=== PATIENT | female | born 1995 | race Caucasian/White ===

== ENCOUNTER → 2018-04-12 | Outpatient (CLI) | payer OTHER ==
[~2018-04-12] MED LIST: AMIT50 PO; BUPRENORPHIN-N1 EACH PO; CYCL10 PO; FIORICET 50-301 EACH PO; IBUP800 PO; Inderal40 MG; Naprosyn500 MG PO; Norco 5-325 Ta1 EACH PO
== END | disposition home or self-care (01) ==
LOC: LAB SHORT 13:30 → LAB 13:30
DX: Z34.00 Encounter for supervision of normal first pregnancy, unspecified trimester (principal)
CPT/HCPCS: 87081; 87653

== ENCOUNTER 2018-05-10 04:09 | Inpatient (IN) | payer OTHER ==
[~2018-05-10] VITALS: Ht 177.8 cm; Wt 77.0 kg
[~2018-05-10 04:09] MED LIST changes: -BUPRENORPHIN-N1 EACH PO; -IBUP800 PO
[2018-05-10 04:40] LABS: BASOPHILS ABSOLUTE AUTO 0.03 K/mm3 (0.00-0.23); BASOPHILS PERCENT AUTO 0 % (0-2); EOSINOPHILS ABSOLUTE AUTO 0.11 K/mm3 (0.00-0.68); EOSINOPHILS PERCENT AUTO 1 % (0-6); Hematocrit 33.5 % (33.0-51.0); Hemoglobin 11.4 g/dL (11.5-16.0); IMMATURE GRAN ABSOLUTE AUTO 0.05 K/mm3 (0.00-0.10); IMMATURE GRAN PERCENT AUTO 1 % (0-1); LYMPHOCYTES ABSOLUTE AUTO 2.86 K/mm3 (0.84-5.20); LYMPHOCYTES PERCENT AUTO 29 % (21-46); MONOCYTES ABSOLUTE AUTO 0.76 K/mm3 (0.16-1.47); MONOCYTES PERCENT AUTO 8 % (4-13); Mean Corpuscular HGB 31.1 pg (26.0-34.0); Mean Corpuscular Volume 91 fL (80-100); Mean Platelet Volume 11.6 fL (9.1-12.4); NEUTROPHILS ABSOLUTE AUTO 6.07 K/mm3 (1.96-9.15); NEUTROPHILS PERCENT AUTO 62 % (41-73); Platelet Count 200 K/mm3 (150-400); RDW Coefficient Variation 12.5 % (11.7-14.2); RDW Standard Deviation 41.2 fL (35.1-46.3); Red Blood Cell Count 3.67 M/mm3 (3.80-5.20); White Blood Cell Count 9.88 K/mm3 (4.00-11.30)
[2018-05-10] MEDS ORDERED: BUPRENORPHIN-N1 EACH PO (04:43)
--- NOTE | 2018-05-11 08:00 | NUR ---
PT REFUSED AM LABS AT 0500 AND AGAIN AT 0800 PT REFUSED AM LABS AT 0500 AND STATED THE AUTOMATIC RIVETING MACHINE OPERATOR COULD BACK AT 0800 TO DRAW THEM. AUTOMATIC RIVETING MACHINE OPERATOR CAME BACK AT 0800 AND PT REFUSED LAB DRAW ONCE AGAIN.
[2018-05-11] MEDS ORDERED: IBUP800 PO (12:05)
--- NOTE | 2018-05-11 16:00 | NUR ---
DISCHARGED TO BOARDER STATUS
== END 2018-05-11 17:07 | disposition home or self-care (01) | DRG 806 ==
LOC: OBS 04:09 → BC 04:09 → OBS 04:15 → BC 04:18
PROVIDERS: ADMIT Obstetrics & Gynecology
PROC: 10E0XZZ Delivery of Products of Conception, External Approach (ICD-10-PCS; principal; 2018-05-10)
PROC: 0KQM0ZZ Repair Perineum Muscle, Open Approach (ICD-10-PCS; 2018-05-10)
PROC: 3E033VJ Introduction of Other Hormone into Peripheral Vein, Percutaneous Approach (ICD-10-PCS; 2018-05-10)
PROC: 10907ZC Drainage of Amniotic Fluid, Therapeutic from Products of Conception, Via Natural or Artificial Opening (ICD-10-PCS; 2018-05-10)
PROC: 3E0R3BZ Introduction of Anesthetic Agent into Spinal Canal, Percutaneous Approach (ICD-10-PCS; 2018-05-10)
DX: O48.0 Post-term pregnancy (principal); O99.324 Drug use complicating childbirth; Z37.0 Single live birth; F11.20 Opioid dependence, uncomplicated; Z3A.40 40 weeks gestation of pregnancy; O99.334 Smoking (tobacco) complicating childbirth; F17.210 Nicotine dependence, cigarettes, uncomplicated; O70.1 Second degree perineal laceration during delivery
CPT/HCPCS: 36415; 51702; 85025; 85460; 96372; J1885; J2210; J2405; J2590; J2790; J3010; J7120

== ENCOUNTER → 2019-05-27 | Outpatient (CLI) | payer OTHER ==
[~2019-05-27] MED LIST changes: +BUPRENORPHIN-N1 EACH PO; +IBUP800 PO
[2019-05-29 10:03] LABS: T. vaginalis (DNA Probe) Negative (NEGATIVE)
[2019-05-29 10:04] LABS: Candida species (DNA Probe) Negative (NEGATIVE); G. vaginalis (DNA Probe) Positive (NEGATIVE)
[2019-05-29 15:07] LABS: HPV 16 Negative (Negative); HPV 18 Negative (Negative); HPV OTHER HR TYPES Negative (Negative)
== END | disposition home or self-care (01) ==
LOC: LAB 12:34 → LAB SHORT 12:34
PROVIDERS: Family Medicine
DX: Z12.4 Encounter for screening for malignant neoplasm of cervix (principal); N76.0 Acute vaginitis
CPT/HCPCS: 87480; 87510; 87624; 87660; G0123

== ENCOUNTER → 2020-04-28 | Outpatient (CLI) | payer OTHER ==
[~2020-04-28] MED LIST changes: +BUPRENORPHN-NA1 EAC2 SL; +HYDR1TAB94 PO; +ONDA4ODT MM
[2020-05-01 03:09] LABS: CHLAMYDIA TRACHOMATIS, NAA Negative (Negative)
== END | disposition home or self-care (01) ==
LOC: LAB SHORT 11:59 → LAB EV 11:59
PROVIDERS: Family Medicine
DX: Z32.01 Encounter for pregnancy test, result positive (principal); N76.0 Acute vaginitis
CPT/HCPCS: 84702; 87070; 87086; 87205; 87491; 87591

== ENCOUNTER 2020-05-25 16:23 | Emergency (ER) | payer OTHER ==
[~2020-05-25] VITALS: Ht 177.8 cm; Wt 67.1 kg
[~2020-05-25 16:23] MED LIST changes: -BUPRENORPHN-NA1 EAC2 SL
[2020-05-25] MEDS ORDERED: BUPRENORPHN-NA1 EAC2 SL (16:57)
[2020-05-25 17:07] LABS: BASOPHILS ABSOLUTE AUTO 0.03 K/mm3 (0.00-0.23); BASOPHILS PERCENT AUTO 1 % (0-2); EOSINOPHILS ABSOLUTE AUTO 0.16 K/mm3 (0.00-0.68); EOSINOPHILS PERCENT AUTO 3 % (0-6); Hematocrit 34.3 % (33.0-51.0); Hemoglobin 11.3 g/dL (11.5-16.0); IMMATURE GRAN ABSOLUTE AUTO 0.02 K/mm3 (0.00-0.10); IMMATURE GRAN PERCENT AUTO 0 % (0-1); LYMPHOCYTES PERCENT AUTO 39 % (21-46); MONOCYTES ABSOLUTE AUTO 0.65 K/mm3 (0.16-1.47); MONOCYTES PERCENT AUTO 10 % (4-13); Mean Corpuscular HGB 27.6 pg (26.0-34.0); Mean Corpuscular HGB Conc 32.9 g/dL (31.5-36.5); Mean Corpuscular Volume 84 fL (80-100); Mean Platelet Volume 10.5 fL (9.1-12.4); NEUTROPHILS ABSOLUTE AUTO 3.08 K/mm3 (1.96-9.15); NEUTROPHILS PERCENT AUTO 48 % (41-73); NRBC ABSOLUTE 0.04 K/mm3 (0.00-0.02); NRBC Auto 0.6 /100 WBC (0.0-0.2); Platelet Count 367 K/mm3 (150-400); RDW Coefficient Variation 12.6 % (11.7-14.2); RDW Standard Deviation 38.5 fL (35.1-46.3); White Blood Cell Count 6.44 K/mm3 (4.00-11.30)
[2020-05-25 17:24] LABS: Alanine Aminotransfer (ALT/SGP 131 U/L (12-78); Albumin, Blood 3.6 g/dL (3.4-5.0); Albumin/Globulin Ratio 0.9 (0.8-1.8); Alk Phos 89 U/L (50-136); Anion Gap 7 mmol/L (6-16); Aspartate Aminotrans (AST/SGOT 132 U/L (12-37); Beta HCG, Quantitative, Serum 35 mIU/mL (0-3); Bilirubin, Total 0.6 mg/dL (0.1-1.0); Blood Urea Nitrogen 7 mg/dL (8-24); Bun/Creatinine Ratio 12.1 (12.0-20.0); CO2, Blood 25 mmol/L (21-32); Calcium, Blood 8.8 mg/dL (8.5-10.1); Chloride, Blood 106 mmol/L (98-108); Creatinine, Blood 0.58 mg/dL (0.40-1.00); Globulin, Blood 3.8 g/dL (2.2-4.0); Glomerular Filtration Rate >60 (60-); Glucose, Blood 115 mg/dL (70-99); Potassium, Blood 4.1 mmol/L (3.5-5.5); Sodium, Blood 138 mmol/L (136-145); Total Protein, Blood 7.4 g/dL (6.4-8.2)
== END 2020-05-25 20:08 | disposition home or self-care (01) ==
LOC: ER 16:23
PROVIDERS: Physician Assistant
DX: N93.9 Abnormal uterine and vaginal bleeding, unspecified (principal); R11.0 Nausea; R42 Dizziness and giddiness; R10.30 Lower abdominal pain, unspecified; R00.0 Tachycardia, unspecified; I10 Essential (primary) hypertension; Z87.891 Personal history of nicotine dependence
CPT/HCPCS: 36415; 76830; 76856; 80053; 84702; 85025; 96360; 96361; 99284-25; J7120

== ENCOUNTER 2020-05-27 12:31 | Day surgery (SDC) | payer OTHER ==
[~2020-05-27] VITALS: Ht 177.8 cm; Wt 67.5 kg
[~2020-05-27 12:31] MED LIST changes: +BUPRENORPHN-NA1 EAC2 SL
--- NOTE | 2020-05-27 13:50 | NUR ---
Ambulatory in Day Surgery History, Chart, Medications and Allergies reviewed before start of procedure.Patient confirms NPO status and agrees with scheduled surgery. Pre-Op teaching done. Pt verbalizes understanding.
--- NOTE | 2020-05-27 16:53 | NUR ---
PT MEDICATED C PERCOCET 1 TAB PO FRO INCREASED ABD CRAMPING. AMBULATES TO RESTROOM c SLOW GAIT TO VOID, + IV DC'D, CATH INTACT AND PRESSURE DRESSING APPLIED. GIVEN RX AND DC INSTRUCTIONS. PT VERBALIZES AN UNDERSTANDING. GIVEN CLEAN KITTY-PAD, MINIMAL LIGHT PINK BLEEDING NOTED ON PAD FROM PACU. OTD IN NAD VIA WC, MOTHER SIGNS RIDE HOME. PT CONTINUES TO DENY QUESTIONS AND VERBALIZES AN UNDERSTANDING.
== END 2020-05-27 22:50 | disposition home or self-care (01) ==
LOC: ORSCMMR 12:31
PROVIDERS: Obstetrics & Gynecology
PROC: 10D17ZZ Extraction of Products of Conception, Retained, Via Natural or Artificial Opening (ICD-10-PCS; principal; 2020-05-27 14:00)
DX: O07.1 Delayed or excessive hemorrhage following failed attempted termination of pregnancy (principal); F32.9 Major depressive disorder, single episode, unspecified; Z87.891 Personal history of nicotine dependence
CPT/HCPCS: 88305; A9270; J0690; J1100; J1885; J2210; J2250; J2405; J3010; J7120

== ENCOUNTER → 2023-10-20 | Outpatient (CLI) | payer OTHER | LOC: LAB 11:03 → LAB SHORT 11:03 | DX: N39.0 Urinary tract infection, site not specified (principal) | CPT/HCPCS: 87086 ==

== ENCOUNTER 2024-07-30 18:38 | Emergency (ER) | payer OTHER ==
[~2024-07-30] VITALS: Ht 177.8 cm; Wt 83.9 kg
[2024-07-30 19:24] VITALS: BP 128/85
[2024-07-30 20:29] LABS: Source, Urine Clean Catch
[2024-07-30 20:40] LABS: Appearance, Urine Hazy (Clear); Bilirubin, Urine Neg (Neg); Blood, Urine 1+ (Neg); Color, Urine Yellow (P-Yellow); Glucose Qualitative, Urine Neg (Neg); Ketones, Urine Neg (Neg); Leukocyte Esterase, Urine Neg (Neg); Nitrite, Urine Neg (Neg); Protein, Urine 2+ (Neg); Urobilinogen, Urine NORM (Normal)
[2024-07-30 20:47] LABS: Bacteria Many /hpf; Mucus Light (0-Heavy); Red Blood Cells, Urine 0-2 /hpf (0-2); Squamous Epithelial Cells Many /hpf (Few); White Blood Cells, Urine 0-2 /hpf (0-5)
[2024-07-30] MEDS ORDERED: BACTRIM DS TAB1 EAC1 PO (21:30)
[2024-07-30] MEDS ORDERED: Trimethoprim/Sulfamethoxazole DS Tab PO ONE (21:30)
[2024-07-30] MEDS ORDERED: BETASEPT118 M7 TOP (21:30)
== END 2024-07-30 21:40 | disposition home or self-care (01) ==
LOC: ER 18:38
PROVIDERS: Physician Assistant
DX: J32.9 Chronic sinusitis, unspecified (principal); L73.9 Follicular disorder, unspecified; A49.02 Methicillin resistant Staphylococcus aureus infection, unspecified site; F17.200 Nicotine dependence, unspecified, uncomplicated; I10 Essential (primary) hypertension; Z79.899 Other long term (current) drug therapy
CPT/HCPCS: 81001; 87086; 99283; A9270

== ENCOUNTER 2025-04-12 16:15 | Emergency (ER) | payer OTHER ==
[~2025-04-12] VITALS: Ht 177.8 cm; Wt 81.7 kg
[~2025-04-12 16:15] MED LIST changes: +BACTRIM DS TAB1 EAC1 PO; +BETASEPT118 M7 TOP
[2025-04-12 16:38] VITALS: BP 165/77
== END 2025-04-12 17:36 | disposition home or self-care (01) ==
LOC: ER 16:15
DX: Z76.89 Persons encountering health services in other specified circumstances (principal); Z79.899 Other long term (current) drug therapy
CPT/HCPCS: 99281; A9270